=== PATIENT | female | born 1995 | race Caucasian/White ===

== ENCOUNTER 2022-05-07 19:51 | Inpatient (IN) | payer OTHER ==
[~2022-05-07] VITALS: Ht 162.6 cm; Wt 59.4 kg
--- NOTE | 2022-05-07 20:20 | NUR ---
TO ER BED 13. [id number]. ALCOHOL WITHDRAWAL. LAST DRINK IN MORNING. AMOUNT VARIES PER DAY. PT NOTED TO HAVE ELEVATED HR 160's AT TRIAGE. PT IS ALERT AND ORIENTED. RR EVEN AND NONLABORED. CONNECTED TO POX AND HEART MONITOR. AWAITING MD FUNES
[2022-05-07] MEDS ORDERED: IV NS 0.9% 1,000 ML BAG IV ONE ×3 (20:30→23:00)
[2022-05-07] MEDS ORDERED: LORAZEPAM INJ 2 MG/ML VIAL IVP ONE (20:30)
[2022-05-07] MEDS ORDERED: Thiamine 100 MG in IV D5W 50 ML IV SCH (20:30)
[2022-05-07] MEDS ORDERED: ONDANSETRON HCL/PF - ER 4 MG/2 ML VIAL IV ONE (20:30)
--- NOTE | 2022-05-07 20:30 | NUR ---
IV LINE ESTABLISHED, RAC20G
[2022-05-07] MEDS ORDERED: Thiamine 100 MG/ML VIAL ONE (20:31)
[2022-05-07] MEDS ORDERED: ONDANSETRON HCL/PF 4 MG/2 ML VIAL ONE (20:31)
[2022-05-07] MEDS ORDERED: LORAZEPAM INJ 2 MG/ML VIAL ONE ×3 (20:32→21:43)
[2022-05-07 20:47] LABS: BASOPHILS % (AUTO) 0.2 % (0.0-2.0); HEMATOCRIT 49 % (33-45); HEMOGLOBIN 16.2 g/dL (11.5-14.8); LYMPHOCYTES # (AUTO) 1.7 K/uL (0.8-4.8); LYMPHOCYTES % (AUTO) 15.3 % (20.0-44.0); MEAN CORPUSCULAR HGB CONC 33 g/dl (31.0-36.0); MEAN CORPUSCULAR VOLUME 93 fL (82-100); MONOCYTES # (AUTO) 0.5 K/uL (0.1-1.30); MONOCYTES % (AUTO) 4.1 % (2.0-12.0); NEUTROPHILS # (AUTO) 9.1 K/uL (1.8-8.9); NEUTROPHILS % (AUTO) 80.4 % (43.0-81.0); PLATELET COUNT (AUTO) 511 K/uL (150-450); RED BLOOD CELL COUNT(AUTO) 5.27 MIL/uL (4.0-5.2); WHITE BLOOD COUNT (AUTO) 11.3 K/uL (4.3-11.0)
--- NOTE | 2022-05-07 20:54 | NUR ---
GENEVA COLLECTED AND SENT TO LAB.
[2022-05-07] MEDS ORDERED: LORAZEPAM INJ 2 MG/ML VIAL IV ONE ×2 (21:00→22:00)
[2022-05-07 21:08] LABS: ALANINE AMINOTRANSFERASE 140 U/L (12-78); ALBUMIN 4.6 g/dL (3.4-5.0); ALCOHOL, BLOOD 299 mg/dL (0-0); ALKALINE PHOSPHATASE 128 U/L (46-116); ASPARTATE AMINOTRANSFERASE 92 U/L (15-37); BILIRUBIN,DIRECT 0.2 mg/dL (0.0-0.2); BILIRUBIN,TOTAL 0.4 mg/dL (0.2-1.0); CARBON DIOXIDE 20 mmol/L (21-32); CHLORIDE 95 mmol/L (98-107); CREATININE 1.2 mg/dL (0.6-1.3); GLUCOSE 146 mg/dL (74-106); POTASSIUM 3.8 mmol/L (3.5-5.1); SODIUM SERUM 138 mmol/L (136-145); TOTAL PROTEIN, SERUM 8.3 g/dL (6.4-8.2); UREA NITROGEN, BLOOD 10 mg/dL (7-18)
[2022-05-07 21:12] LABS: ACETAMINOPHEN < 10 ug/ml (10-30)
[2022-05-07 21:15] LABS: THYROID STIMULATING HORMONE 0.233 uIU/mL (0.358-3.74)
--- NOTE | 2022-05-07 21:59 | NUR ---
URINE COLLECTED AND SENT TO LAB
[2022-05-07 22:38] LABS: BILIRUBIN,URINE NEGATIVE (NEGATIVE); COLOR,URINE YELLOW (YELLOW); LEUKOCYTE ESTERASE ,URINE NEGATIVE (NEGATIVE); NITRITE, URINE NEGATIVE (NEGATIVE); PROTEIN,URINE 2+ mg/dl (NEGATIVE); UGLUCOSE NEGATIVE (NEGATIVE); UROBILINOGEN,URINE 0.2 EU/dL (0.2)
[2022-05-07] MEDS ORDERED: MAGNESIUM HYDROXIDE 30 ML UDC PO PRN (23:00)
[2022-05-07] MEDS ORDERED: ACETAMINOPHEN 325 MG TABLET PO PRN (23:00)
[2022-05-07] MEDS ORDERED: ZOLPIDEM TARTRATE 5 MG TABLET PO PRN (23:00)
[2022-05-07] MEDS ORDERED: Z GUARD REMEDY 4 OZ OINT TP PRN (23:00)
[2022-05-07] MEDS ORDERED: MAG HYDROX/AL HYDROX/SIMETH 30 ML UDC PO PRN (23:00)
[2022-05-07 23:42] LABS: BACTERIA,URINE Few /HPF (None Seen); SQUAMOUS EPITHELIAL CELL,UR Moderate /HPF (None Seen)
--- NOTE | 2022-05-08 00:34 | NUR ---
REPORT GIVEN TO FRANCISCO HILLIARD FOR FLORINA
[2022-05-08 00:40] VITALS: BP 114/52
--- NOTE | 2022-05-08 00:40 | NUR ---
SOFTWARE DEVELOPMENT ANALYST ADMITTING NOTES PT ARRIVED AT UNIT VIA GURNEY BY ER STAFF, ABLE TO WALK TO BED. ORIENTED TO UNIT AND HOW TO USE CALL LIGHT. A/O X4, ABLE TO MAKE NEEDS KNOWN, COOPERATIVE. PT NOTED WITH SOME LETHARGY, MINOR SHAKINESS. PLACED ON SEIZURE PRECAUTIONS. VITAL SIGNS: 114/52 BP, 132 HR, 99.5 F, 100% O2, 20 RR. ON RA WITH NO S/S OF RESPIRATORY DISTRESS. DENIES PAIN AT THIS TIME. C/O NAUSEA. PT ABLE TO ANSWER ADMISSION QUESTIONS WELL. BREATH SOUNDS CLEAR THROUGHOUT. PLACED ON TELE MONITOR SHOWING SINUS TACHYCARDIA, 132 HR. SKIN ASSESSMENT PERFORMED, INTACT. BELONGINGS CHECKED AND DOCUMENTED IN CHART. IV ACCESS RAC #20G, PATENT, INTACT, FLUSHING WELL. STARTED ON 0.9% NS @ 150 ML/HR. PROVIDED WITH SNACKS. SAFETY PRECAUTIONS PUT IN PLACE: BED LOCKED AND IN LOWEST POSITION, SIDE RAILS UP X2, BED ALARM ON, CALL LIGHT AND TRAY TABLE WITHIN REACH. WILL CONTINUE TO MONITOR AND ASSIST.
[2022-05-08] MEDS: IV NS 0.9% 1,000 ML IV PRN ×2 (02:21→18:19)
[2022-05-08] MEDS: ONDANSETRON HCL/PF 4 MG/2 ML VIAL IVP PRN ×3 (02:28→23:57)
[2022-05-08] MEDS: CHLORDIAZEPOXIDE HCL 25 MG CAPSULE PO SCH ×4 (02:28→16:03)
[2022-05-08 04:00] VITALS: BP 99/43
[2022-05-08 06:29] LABS: BASOPHILS % (AUTO) 0.4 % (0.0-2.0); HEMATOCRIT 32 % (33-45); HEMOGLOBIN 10.9 g/dL (11.5-14.8); LYMPHOCYTES # (AUTO) 2.5 K/uL (0.8-4.8); LYMPHOCYTES % (AUTO) 23.3 % (20.0-44.0); MEAN CORPUSCULAR HGB CONC 34 g/dl (31.0-36.0); MEAN CORPUSCULAR VOLUME 93 fL (82-100); MONOCYTES # (AUTO) 0.8 K/uL (0.1-1.30); NEUTROPHILS # (AUTO) 7.6 K/uL (1.8-8.9); NEUTROPHILS % (AUTO) 69.3 % (43.0-81.0); PLATELET COUNT (AUTO) 286 K/uL (150-450); RED BLOOD CELL COUNT(AUTO) 3.49 MIL/uL (4.0-5.2); WHITE BLOOD COUNT (AUTO) 10.9 K/uL (4.3-11.0)
--- NOTE | 2022-05-08 06:54 | NUR ---
REVENUE STAMP CLERK CLOSING NOTES PT IN BED RESTING AT THIS TIME, EASILY AROUSED. A/O X4, ABLE TO MAKE NEEDS KNOWN, COOPERATIVE. PT STATES FEELING BETTER AND NAUSEA IMPROVED. NO WITHDRAWAL SYMPTOMS NOTED. STABLE ON RA WITH NO S/S OF RESPIRATORY DISTRESS. DENIES PAIN AT THIS TIME. ON TELE MONITOR SHOWING SR, 98 HR. IV ACCESS RAC #20G, PATENT, INTACT, FLUSHING WELL, INFUSING 0.9% NS @ 150 ML/HR. ALL CARE PROVIDED AND MEDS TOLERATED WELL. SAFETY PRECAUTIONS MAINTAINED: BED LOCKED AND IN LOWEST POSITION, SIDE RAILS UP X2, BED ALARM ON, CALL LIGHT AND TRAY TABLE WITHIN REACH. WILL ENDORSE FLORINA TO DAY SHIFT NURSE.
[2022-05-08 07:21] LABS: ALBUMIN 2.9 g/dL (3.4-5.0); BILIRUBIN,TOTAL 0.6 mg/dL (0.2-1.0); CALCIUM, SERUM 7.5 mg/dL (8.5-10.1); CREATININE 0.7 mg/dL (0.6-1.3); MAGNESIUM 1.4 mg/dL (1.8-2.4); POTASSIUM 3.9 mmol/L (3.5-5.1); TOTAL PROTEIN, SERUM 5.4 g/dL (6.4-8.2)
--- NOTE | 2022-05-08 07:30 | NUR ---
DATA WAREHOUSING ENGINEER OPENING NOTES RECEIVED PATIENT ON BED RESTING AND A/O X4. ON ROOM AIR TOLERATING WELL. NO SOB NOTED. NOT IN DISTRESS. WITH NO COMPLAINTS OF PAIN OR DISCOMFORT AT THIS TIME. ON TELE MONITOR CURRENTLY READING SINUS RHYTHM AT 97BPM. WITH IV ACCESS AT THE RIGHT AC G20 WITH IVF NS AT 150ML/HR INFUSING WELL. SAFETY MEASURES IN PLACED. CALL LIGHT WITHIN REACH. BED ON LOWEST LOCKED POSITION, SIDE RAILS UP X2. WILL CONTINUE TO MONITOR.
[2022-05-08] MEDS: PANTOPRAZOLE 40 MG VIAL IV SCH (08:23)
[2022-05-08 08:36] VITALS: BP 109/57
[2022-05-08] MEDS ORDERED: GABA-532 PO (08:43)
[2022-05-08] MEDS: Magnesium 1GM/D5W 100ML PREMIX 100 ML IV SCH ×4 (10:41→16:02)
--- NOTE | 2022-05-08 11:31 | NUR ---
SS Consult: SS consult requested for Alcohol use. The pt. is a 26-year-old male pt. who was admitted to [facility] due to alcohol withdrawal per EMR. Upon SS consult, the pt. is Alert & Oriented x 4 and makes poor eye contact. The pt. appears unkempt. Pt. has depressed mood & affect. Pt.s speech is and thought process are WNL. Pt. remained calm & cooperative throughout interview although somewhat reserves/guarded. Pt. denies SI/HI and denies hallucinations. SW explored pt.s living situation. Patient states she is currently residing at home [[address] [address]] with roommates. SW explored pt.s drug & ETOH use. Pt. states She drinks about 1 bottle of wine daily. SW used motivational interviewing and offered pt. rehab referral and pt. refused. However, pt. accepted addiction resources. Pt. states she was luc residential treatment program in [facility] and that it helped her realize she can live without alcohol. Pt. denies Hx. of mental illness. Per pt. she is ambulatory independent with all her ADLs. Pt. states he does not receive any financial assistance. Per pt., she works in a [employer], Plan: SW provided pt. with the following addiction and mental health resources and pt. accepted them. Per pt. he would like to return to home [[address] [address]]. ADDICTION RESOURCES For Drugs and Alcohol [facility] sober living Referrals For Rehabilitation once sober Address:[address] [place] [id number] [facility] [address] [place] [address] Detox/residential [facility] Substance Abuse Helpline ([facility]) Outpatient, residential treatment, recovery support for youth/adults [facility] www.actionfamilycounsWave Technology Solutions.Genius [facility] [place] Teen programs for drug/alcohol education and support [facility] [place]. Program for adults, sliding scale provides support and education Zaynab Info www.TheFriendMailRadialpoint.org [place]; Detox/residential treatment programs; transition to sober living [facility] www.cri-help.org [place]; Outpatient and residential treatment programs; transition to sober living [facility] TEL: [phone] I-[facility] Rodríguez [place]; Outpatient education and supportive programs for teens and adults [place] [facility] www.oasiswomensrecjefferson [facility] geriatric centery.org [place]; Residential treatment and work program for females only [place] www.Zalicusxpool.JumpOffCampus [place]: Outpatient/residential treatment program for teens and young adults [facility] www.[facility].org [place] Detox, inpatient, outpatient for adults and youth [facility], [facility]. [place]; Outpatient programs and referrals to community residential programs. Alcoholics Anonymous -SFV information and meeting and scheduleswww.aa-intergroup.org Pm-Mqur-Hphradb https://al-anon.org/ [place] support groups for family of alcoholics. Marijuana Anonymous www.madistrict6.org -SFV listing of meetings Narcotics Anonymous www.na.org SOBER LIVING RESOURCES [facility] www.soberhousing.net A non-profit agency that provides resources to recovery and sober living homes throughout [facility], [facility] Sober Living Homes: A Work in ProgressBrett [facility], fos4X [place] [facility], [place] Sob[facility] System[facility] Womens Sober Living Homes: [facility] [phone] [place], [place] [facility], fos4X [place] [facility] Coed Sober Living Homes: [facility] Counseling--Outpatient [facility] [address] [place] [address] [place] [address] (Specializes in in-depth psychotherapy for emotional distress: anxiety, depression, interpersonal conflicts, life transitions, childhood abuse) [facility] [address] [place] [address] (Assist with solving problem marital difficulties, separation & divorce, aging parents, & grief, chronic & terminal illness) [facility] [address] [place] [address] (Deal with loss & grief, anxiety, marital difficulties) Homebound/Mental Health Services [address] [place] [address] (Provide in-home mental services to people who are incapable of leaving their homes) Organization for Needs of the Elderly Senior Service/Resource Center [address] [place] [address] [facility] [address] [place] [address] Mental Health Services [facility] [address] [place] [address] Services: Outpatient therapy for children, teens, young adults, adults, older adults, and families; Psychiatric services, medication support Psychiatric Outpatient Services [facility] Partial Hospitalization and Intensive Outpatient Program (Managed Care and [place] Only)[address] [facility] [phone] [facility] Partial Hospitalization and Outpatient [id number] [facility] [address] [place], [place] [phone] [facility] Kev[address] [facility] [address] [place], [place] [phone] [facility] Partial Hospitalization and Outpatient [address]ish[address] [place], [phone] Crisis and Hotline Telephone Numbers 24-Hour service unless stated [place] Crisis Hotlines: [facility] Mental Health/Crisis Line........[phone] Suicide Prevention Center (24 Hours).......[phone] Suicide Prevention Crisis Center.......[phone] (24 Hours) Assaults Against Women Hotline.........844.563.2491 (24 Hours -- [facility]) Women and Children Crisis Assisted...........[phone] (24 Hours) Child Abuse Hotline............734.591.5844 [facility] Rape Treatment Center (24 Hours)..........[phone] Alcoholics Anonymous (24 Hours)..........[phone] Cocaine Anonymous (24 Hours)............[phone] Narcotics Anonymous (24 Hours)..........[phone] [facility] [address], [place] [address]
[2022-05-08 11:50] VITALS: BP 118/58
[2022-05-08] MEDS: LORAZEPAM INJ 2 MG/ML VIAL IV PRN ×2 (14:04→20:14)
--- NOTE | 2022-05-08 14:04 | NUR ---
RN NOTE PATIENT WAS COMPLAINING OF ANXIETY AND ASKED FOR ANTI-ANXIETY MEDICATION. ATIVAN IV WAS GIVEN PRN FOR ANXIETY. WILL MONITOR.
[2022-05-08 16:16] VITALS: BP 121/68
[2022-05-08] MEDS: THIAMINE HCL 100 MG TABLET PO SCH (17:31)
--- NOTE | 2022-05-08 18:19 | NUR ---
RN NOTE PATIENT WAS COMPLAINING OF NAUSEA AND ASKED FOR ANTI-NAUSEA MEDICATION. ZOFRAN IV WAS GIVEN PRN FOR NAUSEA.
--- NOTE | 2022-05-08 18:44 | NUR ---
DRAFTER ELECTRONIC CLOSING NOTES PATIENT ON BED RESTING AND A/O X4. ON ROOM AIR TOLERATING WELL. NO SOB NOTED. NOT IN DISTRESS. WITH NO COMPLAINTS OF PAIN OR DISCOMFORT AT THIS TIME. ON TELE MONITOR CURRENTLY READING SINUS RHYTHM AT 87BPM. WITH IV ACCESS AT THE LEFT FOREARM G22 WITH IVF NS AT 150ML/HR INFUSING WELL. DUE MEDS GIVEN. SAFETY MEASURES IN PLACED. CALL LIGHT WITHIN REACH. BED ON LOWEST LOCKED POSITION, SIDE RAILS UP X2. WILL ENDORSE TO NEXT SHIFT FOR FLORINA.
--- NOTE | 2022-05-08 19:30 | NUR ---
TELE MARINE BIOLOGIST INITIAL NOTES RECEIVED REPORT FROM AM NURSE AND SEEN PATIENT IN BED AWAKE AND ALERT WATCHING TV AT THIS TIME. DENIES ANY PAIN IVF NS AT 150ML/HR INFUSING AT THIS TIME ON HER LEFT FOREARM PATENT AND INTACT. SHE STATES THAT SHE FEEL LIKE SHAKING AND NAUSEATED , ZOFRAN JUST ADMINISTERED LIKE MORE THAN AN HOUR AGO . I SPOKE TO HER I WILL CHECK HER MEDS FIRST WHAT CAN WE GIVE IT TO CALM HER DOWN. ASSISTED HER TO THE RESTROOM DENIES ANY DIZZINESS AT THIS TIME. WILL CONTINUE MONITORING.
[2022-05-08 20:00] VITALS: BP_SYST 120; BP_SYST 124; BP_DIAS 74
--- NOTE | 2022-05-08 20:14 | NUR ---
TELE DIRECTOR OF NURSES REGISTRY NOTES ATIVAN 2MG IVP ADMINISTERED BY NURSE FRANCISCO HUNT IVP ORDERED . SEIZURE PRECAUTION IMPLEMENTED FOR PT SAFETY. TELE SINUS RHYTHM PER MONITOR. GAVE SOME SALTINE CRACKERS TOO TO RELIEVED HER NAUSEA.
[2022-05-08] MEDS ORDERED: Thiamine 100 MG in IV D5W 50 ML IV SCH (21:00)
--- NOTE | 2022-05-08 21:30 | NUR ---
TELE AERONAUTICAL PRODUCTS SALES ENGINEER NOTES PT CALLED AND ASKING FOR HER SEROQUEL 100MG TAKING AT NIGHT AND GABAPENTIN 500MG TAKING DAILY . I TOLD HER THAT I NEED TO CALL THE CONTRACTOR BUYER MD TO LET THEM KNOW AND IF IT IS OK I WILL LET HER KNOW RIGHT AWAY.
[2022-05-08] MEDS ORDERED: QUETIAPINE FUMARATE 100 MG TABLET PO SCH (22:00)
--- NOTE | 2022-05-08 22:10 | NUR ---
TELE SANTA'S HELPER NOTES SEROQUEL 100MG PO GIVEN ORDERED. NO SIGNS OF ANY DISCOMFORT AT THIS TIME. WILL CONTINUE MONITORING.
--- NOTE | 2022-05-08 23:57 | NUR ---
tele commercial real estate assistant notes pt feel nauseated, Zofran given tur IVP by another nurse as ordered. IVF still infusing . safety precaution implemented as ordered. will continue monitoring. Place call light at reach.
[2022-05-09] VITALS: BP 136/76
[2022-05-09] MEDS: IV NS 0.9% 1,000 ML IV PRN ×2 (01:54→08:50)
[2022-05-09 04:00] VITALS: BP 109/61
--- NOTE | 2022-05-09 06:07 | NUR ---
tele official court reporter notes Pt remains sleeping at this time but arouse easily. no signs of any discomfort or any signs of distress . IVF still infusing. kept her warm and comfortable at all times. record label internship at the bedside for am blood draws.
[2022-05-09 07:06] LABS: BASOPHILS % (AUTO) 0.3 % (0.0-2.0); EOSINOPHILS % (AUTO) 0.5 % (0.0-6.0); HEMATOCRIT 34 % (33-45); HEMOGLOBIN 11.5 g/dL (11.5-14.8); LYMPHOCYTES # (AUTO) 1.8 K/uL (0.8-4.8); LYMPHOCYTES % (AUTO) 33.3 % (20.0-44.0); MEAN CORPUSCULAR HGB CONC 34 g/dl (31.0-36.0); MEAN CORPUSCULAR VOLUME 94 fL (82-100); MONOCYTES # (AUTO) 0.4 K/uL (0.1-1.30); MONOCYTES % (AUTO) 7.7 % (2.0-12.0); NEUTROPHILS # (AUTO) 3.2 K/uL (1.8-8.9); NEUTROPHILS % (AUTO) 58.2 % (43.0-81.0); PLATELET COUNT (AUTO) 250 K/uL (150-450); RED BLOOD CELL COUNT(AUTO) 3.64 MIL/uL (4.0-5.2); WHITE BLOOD COUNT (AUTO) 5.6 K/uL (4.3-11.0)
[2022-05-09 07:24] LABS: CALCIUM, SERUM 8.3 mg/dL (8.5-10.1); CREATININE 0.6 mg/dL (0.6-1.3); MAGNESIUM 2.1 mg/dL (1.8-2.4); PHOSPHORUS 2.9 mg/dL (2.5-4.9)
--- NOTE | 2022-05-09 07:25 | NUR ---
tele land acquisition manager closing notes Pt remains sleeping, Zofran return to bin after seen patient sleeping but earlier asking for zofran. IVF still infusing. not in any acute distress or any discomfort noted. Tele Sinus Rhythm heart rate 81 per monitor. Kept her warm and comfortable at all times. Place call light at reach. Endorse to am nurse for continuity of care.
--- NOTE | 2022-05-09 07:30 | NUR ---
MANAGER VALIDATION OPENING NOTES RECEIVED PATIENT ON BED RESTING AND A/O X4. ON ROOM AIR TOLERATING WELL. NO SOB NOTED. NOT IN DISTRESS. WITH NO COMPLAINTS OF PAIN OR DISCOMFORT AT THIS TIME. ON TELE MONITOR CURRENTLY READING SINUS RHYTHM AT 86BPM. WITH IV ACCESS AT THE LEFT FOREARM G20 WITH IVF NS AT 150ML/HR INFUSING WELL. SAFETY MEASURES IN PLACED. CALL LIGHT WITHIN REACH. BED ON LOWEST LOCKED POSITION, SIDE RAILS UP X2. WILL CONTINUE TO MONITOR.
[2022-05-09 08:00] VITALS: BP 122/73
[2022-05-09] MEDS: LORAZEPAM INJ 2 MG/ML VIAL IV PRN ×3 (08:00→17:08)
--- NOTE | 2022-05-09 08:00 | NUR ---
RN NOTE PATIENT WAS COMPLAINING OF ANXIETY AND ASKED FOR ANTI-ANXIETY MEDICATION. ATIVAN IV WAS GIVEN PRN FOR ANXIETY. WILL MONITOR.
[2022-05-09 08:16] LABS: ALBUMIN 2.8 g/dL (3.4-5.0); BILIRUBIN,DIRECT 0.3 mg/dL (0.0-0.2); TOTAL PROTEIN, SERUM 5.4 g/dL (6.4-8.2)
[2022-05-09] MEDS: CHLORDIAZEPOXIDE HCL 25 MG CAPSULE PO SCH ×3 (08:36→16:09)
[2022-05-09] MEDS: PANTOPRAZOLE 40 MG VIAL IV SCH (08:36)
[2022-05-09] MEDS ORDERED: GABAPENTIN 100 MG CAPSULE PO SCH (09:00)
[2022-05-09] MEDS: ONDANSETRON HCL/PF 4 MG/2 ML VIAL IVP PRN (12:01)
--- NOTE | 2022-05-09 12:01 | NUR ---
RN NOTE PATIENT WAS COMPLAINING OF NAUSEA AND ASKED FOR ANTI-NAUSEA MEDICATION. ZOFRAN IV WAS GIVEN PRN FOR NAUSEA.
[2022-05-09] MEDS: POTASSIUM CHLORIDE 20 MEQ TAB.PRT.SR PO SCH ×3 (12:56→16:08)
--- NOTE | 2022-05-09 12:57 | NUR ---
RN NOTE PATIENT WAS COMPLAINING OF ANXIETY AND ASKED FOR ANTI-ANXIETY MEDICATION. ATIVAN IV WAS GIVEN PRN FOR ANXIETY. WILL MONITOR.
[2022-05-09 16:00] VITALS: BP 152/105
[2022-05-09] MEDS: THIAMINE HCL 100 MG TABLET PO SCH (17:08)
--- NOTE | 2022-05-09 17:57 | NUR ---
RN NOTE PATIENT WAS COMPLAINING OF ANXIETY AND ASKED FOR ANTI-ANXIETY MEDICATION. ATIVAN IV WAS GIVEN PRN FOR ANXIETY. WILL MONITOR.
--- NOTE | 2022-05-09 19:20 | NUR ---
MS RN OPENING NOTE RECEIVED PATIENT FROM AM NURSE; PATIENT IS ALERT AND ORIENTED X 4; ABLE TO MAKE NEEDS KNOWN; WITH IV ACCESS ON RIGHT HAND G22; ON ROOM AIR BREATHING EVENLY AND NO RESPIRATORY DISTRESS NOTED; ENCOURAGED VERBALIZATION OF NEEDS; WILL CONTINUE TO MONITOR THOUGHOUT SHIFT
--- NOTE | 2022-05-09 19:30 | NUR ---
MS RN CLOSING NOTES PATIENT ON BED RESTING AND A/O X4. ON ROOM AIR TOLERATING WELL. NO SOB NOTED. NOT IN DISTRESS. WITH NO COMPLAINTS OF PAIN OR DISCOMFORT AT THIS TIME. WITH IV ACCESS AT THE RIGHT HAND G22 WITH IVF NS AT 150ML/HR INFUSING WELL. DUE MEDS GIVEN. SAFETY MEASURES IN PLACED. CALL LIGHT WITHIN REACH. BED ON LOWEST LOCKED POSITION, SIDE RAILS UP X2. WILL ENDORSE TO NEXT SHIFT FOR FLORINA.
[2022-05-09 20:00] VITALS: BP 159/98
--- NOTE | 2022-05-09 20:30 | NUR ---
MS RN CLOSING NOTE PATIENT INSISTED ON GETTING MEDICATION FOR SLEEP, INFORMING ME THAT SHE WANTED TO SLEEP FOR THE NIGHT. ADMINISTERED AMBIEN PRN. AT 1935H, PATIENT INSISTED OF GOING HOME. EXPLAINED THAT SHE JUST TOOK AMBIEN AND ITS BETTER TO STAY THE NIGHT; PATIENT STILL INSISTED OF LEAVING THE HOSPITAL AND SAID THAT SHE DOESNT WANT MAKE A CHAOS HERE IN THE HOSPITAL. MD AND CHARGE NURSE MADE AWARE. EXPLAINED THAT WE WILL NOT BE LIABLE FOR ANY THING ONCE SHE'S OUT. IV REMOVED, PRESSURE DRESSING APPLIED. VERBALIZED UNDERSTANDING. AMA FORM SIGNED. WHEELED PATIENT TO LOBBY VIA WHEELCHAIR. LEFT THE HOSPITAL VIA PRIVATE CAR WITH FRIENDS.
[2022-05-10] MEDS ORDERED: PANTOPRAZOLE 40 MG TABLET.DR PO SCH (07:30)
== END 2022-05-09 21:29 | disposition left against medical advice (07) | DRG 894 ==
LOC: ER 19:57 → TELE 05-08 00:18 → MED 05-09 12:49
PROVIDERS: ADMIT Nurse Practitioner Acute Care; ATTEND Student in an Organized Health Care Education/Training Program
DX: F10.139 Alcohol abuse with withdrawal, unspecified (principal); E44.0 Moderate protein-calorie malnutrition; D75.839 Thrombocytosis, unspecified; Y90.8 Blood alcohol level of 240 mg/100 ml or more; Z20.822 Contact with and (suspected) exposure to COVID-19; Z88.2 Allergy status to sulfonamides; D72.829 Elevated white blood cell count, unspecified; F17.210 Nicotine dependence, cigarettes, uncomplicated; F12.90 Cannabis use, unspecified, uncomplicated
CPT/HCPCS: 36415; 71045-TC; 80048-TC; 80053-TC; 80076-TC; 81001; 83690-TC; 83735-TC; 84100-TC; 84439-TC; 84443-TC; 84703-TC; 85025-TC; 87081-TC; C9113; C9803; G0378; G0480; J2060; J2405; J3411; J3475; J7030; J7050; J7060